=== PATIENT | male | born 1930 | race Caucasian/White ===

== ENCOUNTER → 2018-03-30 | Outpatient (CLI) | payer MEDICARE ==
[~2018-03-30] MED LIST: AMIO200T42 PO; AMLO5TAB2 PO; ASPI325T17 PO; ATOR10TA PO; LEVO100T PO; LEVO150T5 PO; LEVO175T5 PO; LISI-167 PO; NITR0.4T28 SL; SLEEPING PILL PO; ZOLP12.52 PO; [UNRECOGNIZED DRUG - CODE] PO
== END | disposition home or self-care (01) ==
LOC: CFH 08:57
PROVIDERS: ATTEND Physician Assistant Medical
DX: I08.0 Rheumatic disorders of both mitral and aortic valves (principal); I10 Essential (primary) hypertension; I48.91 Unspecified atrial fibrillation; E78.5 Hyperlipidemia, unspecified
CPT/HCPCS: 93306